=== PATIENT | male | born 1985 | race Caucasian/White ===

== ENCOUNTER 2018-03-07 06:06 | Emergency (ER) | payer OTHER ==
[~2018-03-07] VITALS: Ht 170.2 cm; Wt 72.6 kg
--- NOTE | ~2018-03-07 | EKG ---
[place] [id number] [facility] [place] [address] ELECTROCARDIOGRAM REPORT Name: GLADIS BAUMAN Room #: DEP NORBERT Frey#: [id number] Admission: 03/07/18 Attend Phys: Discharge: 03/07/18 Date of : 85 Report #: [id number] THIS REPORT FOR: //name// [facility] ED Test Date: 2018-03-07 Test Time: 06:17:37 Pat Name: GLADIS BAUMAN Department: Room: Gender: Quality Control Lab Technician: elisabetnatacha : 1985 Requested By: Milly Osorio Order Number: [id number] MD: Chuck Olguin Measurements Intervals [place] Rate: 75 P: -10 MI: 143 QRS: 84 QRSD: 95 T: 57 QT: 407 QTc: 455 Interpretive Statements Sinus rhythm ST elevation, early repolarization No previous ECG available for comparison Electronically Signed On 03-09-2018 7:50:44 CDT by Chuck Olguin [email or web address] <ELECTRONICALLY SIGNED> By: Chuck Olguin MD, [facility] 03/09/18 0750 0617 0617 Chuck Olguin MD, FACC /EPI
[2018-03-07] MEDS ORDERED: BACTRIM DS TAB1 EACH PO (06:44)
== END 2018-03-07 06:58 | disposition home or self-care (01) ==
LOC: ER 06:06
DX: L02.412 Cutaneous abscess of left axilla (principal); R07.9 Chest pain, unspecified; Z88.1 Allergy status to other antibiotic agents